=== PATIENT | female | born 2000 | race Caucasian/White ===

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

== ENCOUNTER 2020-07-01 18:12 | Inpatient (IN) | payer OTHER, SELFPAY ==
[2020-07-01] VITALS (15 sets, daily range): BP systolic 108–133; BP diastolic 59–82; PULSE 83–99; RESP 18; TEMP 36.6–36.7
--- NOTE | 2020-07-01 18:12 | LDADM ---
This patient, Candy Molina, was admitted to Labor/Delivery/Recovery 104 on 07/01/20 at 18:12. Plans for labor, pain management and were discussed with patient. Patient/family oriented to hospital policies and general routines including ID bracelet, bed and alarms, visiting hours, pain management, procedures, bathroom and other care routines, personal items, smoking policy, room service/diet and guest tray routines, infant security routines, and visiting hours. Patient/Family are encouraged to report perceived risks to care and to ask questions if they do not understand what they are told or what they should do. See OBIX for further documentation.
[2020-07-01 18:56] LABS: Basophils Percent Auto 0.2 % (0.2-1.2); Eosinophils Absolute Auto 0.1 K/mm3 (0-0.3); Eosinophils Percent Auto 0.7 % (0-4.4); Hematocrit 33.1 % (37.0-47.0); Hemoglobin 11.2 g/dL (12.0-15.0); Immature Granulocyte Absolute 0.13 K/mm3 (0.00-0.031); Immature Granulocyte Percent A 0.8 % (0-0.5); Lymphocytes Absolute Auto 2.71 K/mm3 (0.9-3.2); Mean Corpuscular HGB Conc 33.8 g/dl (32-36); Mean Corpuscular Hemoglobin 29.6 pg (26-34); Mean Corpuscular Volume 87.3 fl (80-100); Mean Platelet Volume 11.4 fl (7.4-10.4); Monocytes Percent Auto 6.1 % (2.6-8.5); Neutrophils Percent Auto 75.2 % (45.5-73.1); Platelet Count Result 292 k/mm3 (150-375); Red Blood Count 3.79 M/mm3 (4.2-5.4); Red Cell Distribution Width 13.2 % (11.5-14.5); White Blood Count 15.9 K/mm3 (4.5-10.0)
[2020-07-01] MEDS: DINOPROSTONE 10 MG VAG INSERT VAGINAL (19:18)
[2020-07-02] VITALS (103 sets, daily range): BP systolic 87–149; BP diastolic 52–103; PULSE 61–193; RESP 16; TEMP 36.3–37.2; O2SAT 98–100
[2020-07-02] MEDS: LACTATED RINGERS 1,000 ML 125 ML IV CONT ×2 (05:28→09:56)
[2020-07-02] MEDS: OXYTOCIN 30 UNITS/NS 500 ML 30 UNITS/500 ML BAG 6 UNITS IV CONT (05:29)
[2020-07-02] MEDS: ONDANSETRON INJ 4 MG/2 ML VIAL IV PUSH (06:57)
[2020-07-02] MEDS: FAMOTIDINE 20 MG/2 ML VIAL IV PUSH (12:41)
[2020-07-02] MEDS: OXYTOCIN 30 UNITS/NS 500 ML 30 UNITS/500 ML BAG 125 UNITS IV CONT (19:03)
--- NOTE | 2020-07-02 19:09 | PM.OBPRVD ---
OB - Delivery Note Procedure Route of delivery: Laceration description: Superficial Delivery repair: chromic Specimen: No Estimated blood loss (mL): 300 Anesthesia type: Epidural Disposition: floor Narrative: Patient prepped draped in usual manner for this procedure. Maternal expulsive efforts readily delivered vertex with nuchal cord noted and delivered through. Cord was clamped and cut placenta delivered spontaneously. Cervix vagina and vulva were inspected small laceration was approximated using [id number] 0 chromic suture. Uterus well contracted there is no significant bleeding. At this point procedure was considered terminated. [place] [facility] Weeks of gestation at delivery: 39 Infant gender: Female Weight (pounds): 6 Weight (ounces): 13 score one minute: 8 score five minutes: 9
[2020-07-02] MEDS: IBUPROFEN 600 MG TABLET PO (19:59)
--- NOTE | 2020-07-02 21:39 | OBPPTRN ---
07/02/2020 at 2112 Patient transferred to post room #285 via wheelchair. Support person present. Oriented to unit, room, information board, rooming in, admission packet and security measures. Patient verbalizes understanding.
[2020-07-03 04:44] LABS: Hematocrit 32.2 % (37.0-47.0); Hemoglobin 10.8 g/dL (12.0-15.0)
[2020-07-03 07:30] VITALS: BP 119/80; PULSE 78; RESP 18; TEMP 37.6
[2020-07-03] MEDS: TETANUS,DIPHTHERIA,AC PERTUSSIS ADULT (0.5 ML) BOOSTRIX IM (12:22)
[2020-07-03 19:20] VITALS: BP 125/78; PULSE 88; RESP 16; TEMP 36.7
--- NOTE | 2020-07-03 21:06 | PC.NURSE ---
202907/03/2020 Patient viewed the discharge video Mother & Baby Care, The First Two Weeks . Patient was given the opportunity and encouraged to ask questions. Patient verbalized understanding of information shared and has been given the mother/baby guide for home reference.
--- NOTE | 2020-07-04 06:38 | PC.NURSE ---
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 I explained to mother that she needs to continue taking the Valtrex when necessary and contact her doctor if she notices an outbreak not getting better or needs an additional script. I also explained to her the need to be diligent in observing good hand washing and hygiene before handling baby as the virus can be spread to baby. Symptoms of the virus may manifest itself to baby as seizures, poor feedings, lethargy, etc. If mother sees ANY of these symptoms, or if she is wondering if baby is having any of these symptoms, she should call baby's health provider at once. Mother states understanding.
[2020-07-04 07:19] LABS: Rapid Plasma Reagin Non-Reactive (NonReactive)
--- NOTE | 2020-07-04 07:27 | PM.OBDSVD ---
DS: Admitting Diagnosis Admitting Diagnosis Admitting Diagnosis: Induction of Labor OB - DS: Summary OB Procedures : None OB Procedures Intrapartum: Spontaneous Vag Delivery OB Procedures: : None Time Spent with Patient Time attestation: Total time spent providing and/or coordinating discharge services: DS: Data Data Completed and Pending Labs on day of discharge: Labs from last 24 hours 07/01/20 18:45 RPR Non-reactive Discharge Plan Discharge Discharging Clinician: Chris Chavez Patient Disposition: Home, Self-Care Activity: as tolerated Diet: as tolerated Patient Instructions: Antibiotic Form Stand Alone Forms: General Discharge Information Follow-up/Referrals: Chris Chavez MD [Physician] - 3 Weeks Discharge Medications: New hydrocodone-acetaminophen 5-325 mg Tablet 1 tablet PO Q6H PRN (Reason: Moderate Pain (4-6)) Qty: 10 RF: 0 ibuprofen 600 mg Tablet 600 mg PO Q8H PRN (Reason: Cramping) Qty: 30 RF: 0 Continued famotidine [Pepcid] 20 mg Tablet 20 mg PO BID RF: 0 metoclopramide HCl [Reglan] 10 mg Tablet 10 mg PO Q6H PRN (Reason: Morning Sickness) RF: 0 PNV [id number] fumarate-FA [] 28 mg iron- 800 mcg Tablet 1 tablet PO DAILY RF: 0 Date of admission: 07/01/20 18:12 Primary Care Provider: Roopa Cespedes Admitting Provider: Chris Chavez Attending physician on admission: Chris Chavez
[2020-07-04 08:00] VITALS: BP 139/88; PULSE 91; RESP 16; TEMP 36.3; O2SAT 98
[2020-07-04] MEDS: IBUPROFEN 600 MG TABLET PO (09:29)
[2020-07-04] MEDS: MEASLES,MUMPS,RUBELLA VACCINE 0.5 ML VIAL SUB-Q (09:30)
[2020-07-06 10:54] VITALS: BP 128/83; PULSE 97; RESP 20; TEMP 36.9; O2SAT 99
== END 2020-07-04 11:32 | disposition home or self-care (01) | DRG 806 ==
LOC: ANHLDR 18:20 → ANHOB2 07-02 21:21
PROVIDERS: Admitting Provider Obstetrics & Gynecology; PCP Pediatrics; Visit Provider Obstetrics & Gynecology
DX: O69.81X0 Labor and delivery complicated by cord around neck, without compression, not applicable or unspecified (principal); O71.4 Obstetric high vaginal laceration alone; Z37.0 Single live birth; O98.52 Other viral diseases complicating childbirth; Z3A.39 39 weeks gestation of pregnancy; O36.8330 Maternal care for abnormalities of the fetal heart rate or rhythm, third trimester, not applicable or unspecified; Z23 Encounter for immunization; B00.9 Herpesviral infection, unspecified; O99.344 Other mental disorders complicating childbirth; F41.9 Anxiety disorder, unspecified
CPT/HCPCS: 36415; 85014; 85018; 85025; 86592; 86850; 86900; 86901; 90471; 90686; 90710; 90715; A9270; G0008; J2405; J2590; J2795; J3010; J7120

== ENCOUNTER 2021-03-22 14:59 | Emergency (ER) | payer OTHER, BC, MEDICAID, SELFPAY ==
--- NOTE | ~2021-03-22 | XR_ITS ---
EXAMINATION: XR chest 1V portable DATE: 03/22/2021 16:49 INDICATION: Cough and shortness of breath. Chest pressure. TECHNIQUE: A single frontal view of the chest was obtained. COMPARISON: Chest single view 11/01/2015 FINDINGS: The chest demonstrates clear lungs without pneumonia, pleural effusion, or pneumothorax. Th e heart size is normal. IMPRESSION: 1. No acute cardiopulmonary disease. Reviewed, dictated and finalized at location A.
[2021-03-22 15:04] VITALS: BP 156/71; PULSE 100; RESP 18; TEMP 37.3; O2SAT 98
--- NOTE | 2021-03-22 16:16 | ECG_ITS ---
Measurements Intervals Daniel Rate: 95 P: 58 CA: 142 QRS: 70 QRSD: 98 T: 50 QT: 335 QTc: 421 Interpretive Statements SINUS RHYTHM INCOMPLETE RIGHT BUNDLE BRANCH BLOCK BASELINE ARTIFACT- I, III, AVL, V1-V2, V6 BORDERLINE ECG Electronically Signed On 03-22-2021 17:06:59 CDT by Osmin Miller D.O.
[2021-03-22] MEDS: ALBUTEROL SULFATE (*SP) AEROSOL 1 PUFF 2 PUFF INHALATION (16:31)
--- NOTE | 2021-03-22 16:39 | ED.URI ---
HPI - URI/Sore Throat General Chief Complaint: Anxiety Stated Complaint: shortness of breath Time Seen by Provider: 03/22/21 15:59 Source: patient and RN notes reviewed Mode of arrival: ambulatory Limitations: no limitations History of Present Illness HPI Narrative: This is a 20 year old female who presents for evaluation of shortness of breath, cough and sore throat. She reports she has been having nasal congestion, sore throat, fever, productive cough with yellow phlegm and body aches. She states last night she woke up feeling like she could not breath. She also complaints of stabbing back pain when she coughs or breathes. She states she had a fever of 101 F today and she took DayQuil today for her symptoms. She is not vaccinated for covid, and she states her daughter has similar symptoms. Related Data Allergies Allergy/AdvReac Type Severity Reaction Status Date / Time No Known Allergies Allergy Verified 03/22/21 15:12 Review of Systems Review of Systems: All systems reviewed & are unremarkable except as noted in HPI and below Constitutional: Constitutional: Reports chills and Reports fever(s) ENT: Reports nasal congestion and Reports sore throat Cardiovascular: Cardiovascular: Denies chest pain Respiratory: Respiratory: Reports cough and Reports dyspnea Gastrointestinal: Gastrointestinal: Denies abdominal pain, Denies diarrhea, Denies nausea and Denies vomiting Musculoskeletal: Musculoskeletal: Reports back pain PMFSH Past Medical History Medical History Patient denies medical problems Surgical History Surgical History History of tonsillectomy Family History Family History (Updated 06/07/20 @ 13:50 by Gabino Michele RN) Other Unknown family medical history Social History Social History Smoking status: Never smoker Substance use: never Gender identity (if verbalized by the patient): Female Spiritual care concerns: No Exam Const: General: no acute distress and alert Orientation/consciousness: patient oriented x3 HENMT: Ears: TM's normal bilaterally Mouth: Yes moist mucous membranes Throat: posterior oropharynx normal Eyes: Pupils: Equal, round and reactive pupils present EOM: EOMs intact bilaterally Neck: Neck: normal visual inspection and no lymphadenopathy Chest: Chest palpation & inspection: normal inspection of the chest Resp: Effort & Inspection: normal respiratory effort, not labored, no retractions and no use of accessory muscles Auscultation: clear to auscultation bilaterally (right upper expiratory wheezing otherwise clear to auscultation) Cardio: Rate: regular rate Rhythm: regular rhythm Heart sounds: no murmurs GI: GI Palp: Yes Soft to palpation, No Tenderness to palpation present (GI) and No Guarding due to palpation present (GI) Auscultation: normal bowel sounds Skin: General skin exam: normal color Rashes: no rashes Neuro: General: patient oriented x3, moves all extremities and CN's II-XI intact bilaterally Extrem: General: normal to inspection and no pedal edema Psych: Mental Status: mental status grossly normal Affect: normal affect Course Reevaluation(s) Reevaluation #1: I Discussed with patient lab and imaging results. She may have an occult pneumonia given the leukocytosis so she will be started on antibiotics. She was also instructed on albuterol inhaler MDI use. She is in no acute distress and she is not requiring oxygen so she will be discharged with return precautions. Date: 03/22/21 Time: 17:32 Vital Signs Vital signs: Vital Signs Temperature 99.1 F 03/22/21 15:04 Pulse Rate 100 03/22/21 15:04 Respiratory Rate 18 03/22/21 15:04 Blood Pressure 156/71 H 03/22/21 15:04 Pulse Oximetry 98 03/22/21 15:04 Temperature 99.1 F 03/22/21 15:04 Pulse Rate 99 03/22/21 18:01 Respiratory Rate 20
[2021-03-22 16:40] LABS: Basophils Absolute Auto 0.1 K/mm3 (0.0-0.1); Basophils Percent Auto 0.3 % (0.2-1.2); Eosinophils Percent Auto 0.2 % (0-4.4); Hematocrit 43.1 % (37.0-47.0); Immature Granulocyte Absolute 0.09 K/mm3 (0.00-0.031); Immature Granulocyte Percent A 0.5 % (0-0.5); Lymphocytes Absolute Auto 1.01 K/mm3 (0.9-3.2); Lymphocytes Percent Auto 5.7 % (18.3-44.2); Mean Corpuscular HGB Conc 32.5 g/dl (32-36); Mean Corpuscular Hemoglobin 28.7 pg (26-34); Mean Corpuscular Volume 88.3 fl (80-100); Mean Platelet Volume 12.3 fl (7.4-10.4); Monocytes Percent Auto 5.7 % (2.6-8.5); Neutrophils Absolute Auto 15.7 K/mm3 (1.3-6.7); Neutrophils Percent Auto 87.6 % (45.5-73.1); Platelet Count Result 210 k/mm3 (150-375); Red Blood Count 4.88 M/mm3 (4.2-5.4); Red Cell Distribution Width 13.9 % (11.5-14.5); White Blood Count 17.9 K/mm3 (4.5-10.0)
[2021-03-22 16:50] LABS: Prothrombin Time 13.6 Seconds (11.1-14.7)
[2021-03-22 16:51] LABS: Alanine Aminotransferase 20 U/L (4-35); Albumin Level 4.6 g/dL (3.5-5.1); Alkaline Phosphatase 82 U/L (38-126); Anion Gap 11 mmol/L (8-16); Aspartate Amino Transferase 27 U/L (14-36); Bilirubin,Total 0.6 mg/dL (0.2-1.3); Blood Urea Nitrogen 6 mg/dL (7-17); Calcium 9.7 mg/dL (8.4-10.2); Carbon Dioxide 23 mmol/L (22-30); Chloride 107 mmol/L (98-107); Estimated CRCL calculation 155 ml/min; Estimated Glomerular Filt Rate > 60; Glucose 84 mg/dL (65-105); Potassium 3.5 mmol/L (3.4-5.0); Sodium 141 mmol/L (137-145)
[2021-03-22 16:53] LABS: D Dimer 0.28 ug/mL (<0.48)
[2021-03-22 17:13] LABS: Monoscreen Negative (Negative); Negative Monotest Control Negative (Negative); Positive Monotest Control Positive (Positive)
[2021-03-22 18:01] VITALS: BP 140/69; PULSE 99; RESP 20; O2SAT 97
[2021-03-23 18:42] LABS: SARS-CoV-2 RNA PCR Negative
== END 2021-03-22 18:02 | disposition home or self-care (01) ==
PROVIDERS: Emergency Provider General Practice; PCP Pediatrics
DX: J06.9 Acute upper respiratory infection, unspecified (principal); Z20.822 Contact with and (suspected) exposure to COVID-19
CPT/HCPCS: 36415; 71045; 80053; 81025; 85025; 85380; 85610; 85730; 86308; 87081; 87804; 87880; 93005; 99283; A9270; C9803; U0003; U0005

== ENCOUNTER → 2023-04-10 10:38 | Outpatient (CLI) | payer BC, MEDICAID, SELFPAY ==
--- NOTE | ~2023-04-10 | US_ITS ---
US abdomen complete EXAMINATION: US Abdomen Complete INDICATION: Disorder of the adrenal gland. PROCEDURE: Realtime High Resolution abdomen ultrasound. COMPARISON: No prior studies for comparison FINDINGS: Gallbladder within normal limits. No gallstones, pericholecystic fluid, gallbladder wall t hickening or biliary dilatation. Common bile duct measures mm. Liver echotexture within normal limits without focal mass. Pancreas within normal limits. Pancreati c tail is obscured by bowel gas. Spleen is unremarkeable. Renal echotexture is within normal limits bilaterally without hydronephrosis, contour deforming mass or renal stone. Right kidney measures 12.9 cm. Left kidney measures 12.1 cm. Visualized aspects of the aorta and IVC are within normal limits. Portal vein is patent. No sonograph ic Roper's sign indicated by the technologist. IMPRESSION: 1: Normal abdominal ultrasound. Reviewed, dictated and finalized at location []
== END ==
PROVIDERS: PCP Obstetrics & Gynecology; Visit Provider Obstetrics & Gynecology
DX: E27.9 Disorder of adrenal gland, unspecified (principal)
CPT/HCPCS: 76700

== ENCOUNTER 2023-10-27 21:27 | Emergency (ER) | payer BC, MEDICAID, SELFPAY ==
--- NOTE | ~2023-10-27 | XR_ITS ---
Clinical Indication: Cough PA and lateral views of the chest: Comparison: 03/22/2021 Findings: The lungs are clear, without evidence of focal consolidation or pleural effusion. Cardiome diastinal silhouette is within normal limits. Bones and soft tissues are unremarkable. Impression: Normal chest. Reviewed, dictated and finalized at location . [facility] Impression: Normal chest.
[2023-10-27 21:34] VITALS: BP 160/90; PULSE 104; RESP 16; TEMP 37.2; O2SAT 98
[2023-10-27 22:14] LABS: Strep Group A RT-PCR NOT DETECTED (Negative)
[2023-10-27 22:15] VITALS: O2SAT 97
[2023-10-27 22:25] LABS: Influenza A QL RT-PCR Negative (Negative); Influenza B QL RT-PCR Negative (Negative); RSV RNA, RT-PCR Positive (Negative); SARS-CoV-2 RNA PCR Negative (Negative)
--- NOTE | 2023-10-27 22:57 | ED.URI ---
HPI - URI/Sore Throat General Chief Complaint: Upper Respiratory Infection Stated Complaint: fever, cough, chills Time Seen by Provider: 10/27/23 22:10 Source: patient Mode of arrival: ambulatory Limitations: no limitations History of Present Illness HPI Narrative: Patient is a 22-year-old female who presents the ED with report of upper respiratory symptoms. Patient reports having symptoms since 10/21, including cough, congestion, rhinorrhea, body aches, fevers, sore throat, ha ear pain and congestion. She states her kids and her mother have had similar symptoms. Patient has been using Tylenol, Mucinex, [id number] cough and cold medicines without significant improvement. Denies significant shortness of breath, chest pain. Denies nausea, vomiting. Related Data Allergies Allergy/AdvReac Type Severity Reaction Status Date / Time No Known Allergies Allergy Verified 03/20/23 15:06 Review of Systems Review of Systems: CONSTITUTIONAL: See HPI. ENT: See HPI. CARDIOVASCULAR: Denies chest pain. RESPIRATORY: Seizure. GASTROINTESTINAL: Denies abdominal pain, nausea, vomiting. MUSCULOSKELETAL: Report myalgia. All systems reviewed & are unremarkable except as noted in HPI and below PMFSH Past Medical History Medical History Adrenal abnormality Anxiety Depression Encounter for IUD removal HSV-1 infection Patient denies medical problems Surgical History Surgical History History of gynecological procedure (09/20/20) mirena iud insertion History of gynecological procedure (03/20/23) mirena iud removal History of tonsillectomy History of tonsillectomy Family History Family History Grandparent Acute myocardial infarction maternal grandfather Heart disease maternal grandfather Other Unknown family medical history Social History Social History Smoking status: Never smoker Alcohol intake: never Substance use: never Substance use type: does not use Lack of Transportation: No Lack of Food: Never True Current Housing: I Have Housing Concerned About Future Housing: No Difficulty Paying Gas/Electric Bills: No Difficulty Paying for Meds: No Currently Unemployed: No Education: High School Diploma/GED Difficulty w/ Childcare or Family Care: No Living arrangements: other Additional living arrangements comments: single Occupation/Education: occupation 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 HEAD: Normocephalic, atraumatic. ENT: TMs erythematous and bulging bilaterally. No drainage. No significant ENT swelling. Nasal quality to voice. MMs moist. No stridor. RESPIRATORY: Airway patent, respirations nonlabored. Clear to auscultation bilaterally, no rales, rhonchi, wheezing. CARDIOVASCULAR: Regular rate and rhythm. MUSCULOSKELETAL: Moves all extremities. No gross deformities. SKIN: Warm, dry, normal color. NEURO: A&O X3. Speech clear. Cranial nerves II-XII grossly intact. No ataxic movements. PSYCHIATRIC: Appropriate mood and affect. Normal interaction. Course Vital Signs Vital signs: Vital Signs Temperature 99 F 10/27/23 21:34 Pulse Rate 104 H 10/27/23 21:34 Respiratory Rate 16 10/27/23 21:34 Blood Pressure 160/90 H 10/27/23 21:34 Pulse Oximetry 98 10/27/23 21:34 Oxygen Delivery Room Air 10/27/23 21:34 Temperature 99 F 10/27/23 21:34 Pulse Rate 104 H 10/27/23 21:34 Respiratory Rate 16 10/27/23
--- NOTE | 2023-10-27 23:09 | PC.NURSE ---
Assumed care of pt from MAKI Resendiz at this time.
== END 2023-10-28 00:22 | disposition home or self-care (01) ==
PROVIDERS: Emergency Medicine; Emergency Provider Physician Assistant
DX: J22 Unspecified acute lower respiratory infection (principal); B97.4 Respiratory syncytial virus as the cause of diseases classified elsewhere; H66.93 Otitis media, unspecified, bilateral; Z20.822 Contact with and (suspected) exposure to COVID-19; F41.9 Anxiety disorder, unspecified; F32.A Depression, unspecified
CPT/HCPCS: 71046; 87637; 87651; 99283

== ENCOUNTER 2023-11-07 17:25 | Emergency (ER) | payer BC, MEDICAID, SELFPAY ==
[2023-11-07 17:34] VITALS: BP 125/80; PULSE 85; RESP 16; TEMP 36.8; O2SAT 98
--- NOTE | 2023-11-07 17:43 | ED.EAR ---
HPI - Ear Problem General Chief complaint: Ear Stated complaint: L EAR CLOGGED Time Seen by Provider: 11/07/23 17:33 Source: patient, RN notes reviewed and old records reviewed Mode of arrival: ambulatory Limitations: no limitations History of Present Illness HPI Narrative: Patient presents today complaining of left ear clogging for approximately 10 days. Patient was seen in the ER on 10/27/2023. She was diagnosed with a bilateral otitis media and RSV during this visit and prescribed a 7 day course of Augmentin. States remainder of her symptoms have resolved, and she no longer has any ear pain, but does have this lingering muffling in her left ear. She has tried no medication for these current symptoms and has stopped taking cold medicine as the remainder of her symptoms are gone. Denies drainage from the ear. Related Data Home Medications Medication Instructions Recorded Confirmed No Home Medications 11/07/23 11/07/23 Allergies Allergy/AdvReac Type Severity Reaction Status Date / Time No Known Allergies Allergy Verified 11/07/23 17:31 Review of Systems Review of Systems: CONSTITUTIONAL: Denies body aches, fever, chills, or sweats. EYES: Denies visual changes, redness, or discharge. ENT: Denies rhinorrhea, congestion, sore throat, or otalgia.+ left ear clogging CARDIOVASCULAR: Denies chest pain, palpitations, or edema. RESPIRATORY: Denies cough or dyspnea. GASTROINTESTINAL: Denies abdominal pain, nausea, vomiting, or diarrhea. GENITOURINARY: Denies dysuria or hematuria. SKIN: Denies rash, itching, or wounds. MUSCULOSKELETAL: Denies back pain, joint pain, or myalgia. NEUROLOGIC: Denies headache, numbness, tingling, or weakness. PSYCH: Denies depression or anxiety. [facility] Past Medical History Medical History Adrenal abnormality Anxiety Depression Encounter for IUD removal HSV-1 infection Patient denies medical problems Surgical History Surgical History History of gynecological procedure (09/20/20) mirena iud insertion History of gynecological procedure (03/20/23) mirena iud removal History of tonsillectomy History of tonsillectomy Family History Family History Grandparent Acute myocardial infarction maternal grandfather Heart disease maternal grandfather Other Unknown family medical history Social History Social History Smoking status: Never smoker Alcohol intake: never Substance use: never Substance use type: does not use Lack of Transportation: No Lack of Food: Never True Current Housing: I Have Housing Concerned About Future Housing: No Difficulty Paying Gas/Electric Bills: No Difficulty Paying for Meds: No Currently Unemployed: No Education: High School Diploma/GED Difficulty w/ Childcare or Family Care: No Living arrangements: other Additional living arrangements comments: single Occupation/Education: occupation 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 Please see nursing chart for further information. There is no relevant family history pertinent to the presenting complaint Exam Narrative: GENERAL: Well-appearing, well-nourished, and in no acute distress. HEAD: Normocephalic, atraumatic. EYES: EOMI. No redness or drainage. Conjunctivae normal. ENT: Mucous membranes pink and moist. Nares clear. No rhinorrhea. Right TM normal. Left TM retracted. It is normal
== END 2023-11-07 17:50 | disposition home or self-care (01) ==
PROVIDERS: Emergency Provider Nurse Practitioner
DX: H73.892 Other specified disorders of tympanic membrane, left ear (principal)
CPT/HCPCS: 99211; G0463

== ENCOUNTER 2024-04-01 18:08 | Emergency (ER) | payer BC, SELFPAY ==
--- NOTE | ~2024-04-01 | XR_ITS ---
XR foot LT min 3V Ordering provider: DANNA Chin History: . pain x3 days. No known injury . Comparison: None. FINDINGS: BONES: No acute fracture or dislocation. JOINT SPACES: Normal. No tarsal coalition. SOFT TISSUES: Normal. IMPRESSION: No acute osseous abnormality left foot. Reviewed, dictated and finalized at location A.
[2024-04-01 18:19] VITALS: BP 152/75; PULSE 103; RESP 16; TEMP 37.4; O2SAT 100
--- NOTE | 2024-04-01 18:40 | ED.LOWEXIN ---
HPI - Extremity Injury (Lower) General Chief Complaint: Extremity Injury, Lower Stated Complaint: Left Foot Pain Time Seen by Provider: 04/01/24 18:30 Source: patient and RN notes reviewed Mode of arrival: ambulatory Limitations: no limitations History of Present Illness HPI Narrative: Patient presents today complaining of pain to her left foot. Denies any specific injury, but states she did trip on a hose at a fair last weekend, and this may be the source of her pain. She did note some pain after she had been walking up and down her stairs while doing laundry. Reports some tingling in toes 2 through 5. Currently rates her pain /10 and has been taking ibuprofen without relief. Related Data Home Medications Medication Instructions Recorded Confirmed No Home Medications 11/07/23 04/01/24 Allergies Allergy/AdvReac Type Severity Reaction Status Date / Time No Known Allergies Allergy Verified 04/01/24 18:22 Review of Systems Review of Systems: CONSTITUTIONAL: Denies body aches, fever, chills, or sweats. EYES: Denies visual changes, redness, or discharge. ENT: Denies rhinorrhea, congestion, sore throat, or otalgia. CARDIOVASCULAR: Denies chest pain, palpitations, or edema. RESPIRATORY: Denies cough or dyspnea. GASTROINTESTINAL: Denies abdominal pain, nausea, vomiting, or diarrhea. GENITOURINARY: Denies dysuria or hematuria. SKIN: Denies rash, itching, or wounds. MUSCULOSKELETAL: + left foot pain NEUROLOGIC: Denies headache, numbness, or weakness. + toe tingling PSYCH: Denies depression or anxiety. ON LICENSE OF [facility] Past Medical History Medical History Adrenal abnormality Anxiety Depression Encounter for IUD removal HSV-1 infection Patient denies medical problems Surgical History Surgical History History of gynecological procedure (09/20/20) mirena iud insertion History of gynecological procedure (03/20/23) mirena iud removal History of tonsillectomy History of tonsillectomy Family History Family History Grandparent Acute myocardial infarction maternal grandfather Heart disease maternal grandfather Other Unknown family medical history Social History Social History Smoking status: Never smoker Alcohol intake: never Substance use: never Substance use type: does not use Lack of Transportation: No Lack of Food: Never True Current Housing: I Have Housing Concerned About Future Housing: No Difficulty Paying Gas/Electric Bills: No Difficulty Paying for Meds: No Currently Unemployed: No Education: High School Diploma/GED Difficulty w/ Childcare or Family Care: No Living arrangements: other Additional living arrangements comments: single Occupation/Education: occupation Additional occupation/education comments: barney at [employer] Gender identity (if verbalized by the patient): Female Sexual Orientation (if Verbalized by the Patient): Straight or Heterosexual Spiritual care concerns: No Comments At time of signature, I have reviewed and agree with nursing past medical, surgical, social and family history unless otherwise noted. Please see nursing chart for further information. There is no relevant family history pertinent to the presenting complaint Exam Narrative: GENERAL: Well-appearing, well-nourished, and in no acute distress. HEAD: Normocephalic, atraumatic. EYES: EOMI. No redness or drainage. Conjunctivae normal. ENT: Mucous membranes pink and moist. NECK: Normal AROM. CHEST: No respiratory distress. EXTREMITIES: Left foot: Tenderness to the dorsum of the foot, at the base of toes 2 through 4 with mild edema to the affected area as well. Patient also reports tenderness to the plantar aspect o
== END 2024-04-01 19:15 | disposition home or self-care (01) ==
PROVIDERS: Emergency Provider Nurse Practitioner
DX: S93.602A Unspecified sprain of left foot, initial encounter (principal); X58.XXXA Exposure to other specified factors, initial encounter
CPT/HCPCS: 73630; 99213; G0463

== ENCOUNTER 2024-12-02 10:14 | Outpatient (CLI) | payer OTHER, BC, SELFPAY ==
--- OUTSIDE RECORDS SUMMARY | 2024-12-02 11:11 | XMS_ITS | Referral Summary ---
Author Organization [facility] [employer] Address [address] [place] [address] Care Team Providers Care Hammer Heater Name Role Phone Roopa Cespedes MD Primary Care Provider [phone] [facility],non-owned Affiliates and Associated Physician Practices is amultiple site organization consisting of ambulatory clinics and hospital sitesin [place], [place], [place] and [place]. This disclosure is being madepursuant to the Care Everywhere program and may not contain all information available regarding this patient. Last updated 18.[facility] Allergies No known active allergies Medications * Be aware that medications may not be up to date on this document. Alwaysverify current medications with the patient. Medication Sig Dispensed Refills Start Date End Date Status pantoprazole (PROTONIX) 40 MG packet Take 40 mg by mouth once daily Active cyproheptadine (PERIACTIN) 4 MG tablet Take 1 Tab by mouth at bedtime 30 Tab 2 01/10/2017 Active Active Problems Problem Noted Date Diagnosed Date Closed nondisplaced fracture of base of fifth metacarpal bone of left hand 11/28/2017 Superficial gastritis 01/10/2017 Epigastric abdominal pain 12/11/2016 Weight loss 12/11/2016 Dysphagia 12/11/2016 Dyspepsia 12/11/2016 Social History Tobacco Use Types Packs/Day Years Used Date Smoking Tobacco: Never Smokeless Tobacco: Never Alcohol Use Standard Drinks/Week Comments No 0 (1 standard drink = 0.6 oz pur e alcohol) Sex and Gender Information Value Date Recorded Sex Assigned at Not on file Gender Identity Not on file Sexual Orientation Not on file Last Filed Vital Signs Vital Sign Reading Time Taken Comments Blood Pressure 102/67 01/10/2017 12:44 PM CDT Pulse 88 01/10/2017 12:44 PM CDT Temperature 36.3 C (97.4 F) 01/10/2017 12:05 PM CDT Respiratory Rate 20 01/10/2017 12:44 PM CDT Oxygen Saturation 100% 01/10/2017 12:44 PM CDT Inhaled Oxygen Concentration - - Weight 80.1 kg (176 lb 9.4 oz) 11/28/2017 9:31 A M COMMUNITY HEALTH EDUCATION COORDINATOR Height 178.1 cm (5' 10.12 ) 11/28/2017 9:[address] Body Mass Index 25.25 11/28/2017 9:31 AM COMMUNITY HEALTH EDUCATION COORDINATOR Functional Status Functional Status Response Date of Assess ment Is person deaf or have serious hearing difficult y? No 01/10/2017 Is person blind or have serious difficulty seein g? No 01/10/2017 Does person have serious dif ficulty walking/climbing stairs? No 01/10/2017 Does person have difficulty dressing/bathing? No 01/10/2017 Does person have difficulty doing errands alone? No 01/10/2017 Cognitive Status Response Date of Assessm ent Does person have difficulty concentrating/remembering/making decisions? No 01/10/2017 Plan of Treatment Not on file Care Teams Hammer Heater Relationship Specialty Start Date End Date Roopa Cespedes MD [address] [facility] [address] [place] [address] PCP - General Pediatrics 09/28/14
--- OUTSIDE RECORDS SUMMARY | 2024-12-02 11:11 | XMS_ITS | Patient Health Summary ---
Author Organization [facility] Address [address] [place] [address] Care Team Providers Care Marble Ceiling Installer Name Role Phone Roopa Cespedes MD Primary Care Provider [phone] Note from [facility],non-owned Affiliates and Associated Physician Practices is amultiple site organization consisting of ambulatory clinics and hospital sitesin [place], [place], [place] and [place]. This disclosure is being madepursuant to the Care Everywhere program and may not contain all information available regarding this patient. Last updated 18.[facility] Allergies No known active allergies Medications * Be aware that medications may not be up to date on this document. Alwaysverify current medications with the patient. * pantoprazole (PROTONIX) 40 MG packet Take 40 mg by mouth once daily * cyproheptadine (PERIACTIN) 4 MG tablet(Started 01/10/2017) Take 1 Tab by mouth at bedtime 2 refills remaining Active Problems Problem Noted Date Diagnosed Date [...] lb 9.4 oz) 11/28/2017 9:31 A M ATTRACTION WORKER Height 178.1 cm (5' 10.12 ) 11/28/2017 9:[address] Body Mass Index 25.25 11/28/2017 9:31 AM ATTRACTION WORKER Procedures * IMAGING/RADIOLOGY/XRAY RESULTS ORDER(Performed 02/06/2017) * LAB RESULTS ORDER(Performed 02/06/2017) * PATHOLOGY TISSUE EXAM (STL)(Performed 01/10/2017) Performed for Pain, abdominal, generalized * TISSUE TRANSGLUTAMINASE AB IGA(Performed 01/10/2017) Performed for Epigastric abdominal pain * LIPASE BLOOD(Performed 01/10/2017) Performed for Epigastric abdominal pain * IGA BLOOD(Performed 01/10/2017) Performed for Epigastric abdominal pain * COMPREHENSIVE METABOLIC PANEL(Performed 01/10/2017) Performed for Epigastric abdominal pain * CBC W AUTO DIFFERENTIAL(Performed 01/10/2017) Performed for Epigastric abdominal pain * HELICOBACTER PYLORI UREASE (STL)(Performed 01/10/2017) Performed for Epigastric abdominal pain, Weight loss * ESOPHAGOGASTRODUODENOSCOPY (EGD) BIOPSY(Performed 01/10/2017) Performed for Pain, abdominal, generalized * HCG URINE QUALITATIVE - POCT (IP) BEAKER(Performed 01/10/2017) * EGD(Performed 01/10/2017) Performed for Epigastric abdominal pain, Weight loss * IMAGING/RADIOLOGY/XRAY RESULTS ORDER(Performed 10/06/2014) Results * IMAGING/RADIOLOGY/XRAY RESULTS ORDER (02/06/2017 6:00 PM CDT) Only the most recent of2 resultswithin the time period is included. Anatomical Region Laterality Modality Other Narrative 02/06/2017 6:00 PM CDT Ordered by an unspecified provider. Scanned Document IMAGING * LAB RESULTS ORDER (02/06/2017 6:00 PM CDT) Narrative 02/06/2017 6:00 PM CDT Ordered by an unspecified provider. Scanned Document LAB - THERAPEUTIC DR UG MONITORING ORDERABLES * GROSS + MICRO EXAM (STL) (01/10/2017 11:35 AM CDT) Case Report Surgical Pathology Report Case: [id number] Authorizing Provider: Mychal Brian MD Collected: 01/10/2017 11:35 AM Ordering Location: ENDOSCOPY SERVICES Received: 01/10/2017 01:27 PM Pathologist: Hermelinda Green MD Specimens: A) - Duodenal Biopsy B) - Stomach Biopsy C) - Esophageal Biopsy 01/14/2017 5:33 PM [facility] Final Diagnosis A. DUODENUM, BIOPSY: - NO PATHOLOGIC DIAGNOSIS. B. STOMACH, BIOPSY: - MILD CHRONIC GASTRITIS. - NEGATIVE STAIN FOR HELICOBACTER PYLORI. C. ESOPHAGUS, BIOPSY: - NO PATHOLOGIC DIAGNOSIS. 01/14/2017 5:33 PM [facility] Clinical History The patient is a 16-year-old girl with abdominal pain who underwent upper endoscopy. The endoscopic finding was revolving gastritis. 01/14/2017 5:33 PM [facility] Gross Description The specimens are received fixed in formalin in thee containers for gross and microscopic examination. All containers are labeled with the patient s name, Candy Molina. Specimen A, d uodenal biopsy, consists of five soft, yellow-de la vega tissue fragments, 1 mm to 4 mm in greatest dimension. The specimen is submitted in toto as A1. Specimen B, s tomach biopsy, consists of three soft, yellow-de la vega tissue fragments, 3 mm to 5 mm in greatest dimension. The specimen is submitted in toto as B1. Specimen C, e sophageal biopsy, consists of two 3 mm soft, keller-pink tissue fragments submitted in toto as C1. (CT/na) 01/14/2017 5:33 PM [facility] Microscopic Description A) 3 H&E; B) 3 H&E; 1 H. pylori; C) 3 H&E. Sections of the duodenal biopsy show fragments of unremarkable duodenal mucosa with preserved villous architecture. 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 No significant acute inflammation is identified. Immunohistochemical staining for Helicobacter pylori is negative. Sections of the esophageal biopsy show strips of unremarkable stratified squamous mucosa. (SES/alj) 01/14/2017 5:33 PM CDT [facility] Disclaimer The performance characteristics of all immunohistochemical and indirect immunofluorescence stains (if any) cited in this report were determined by the Histopathology Laboratory of [facility]. Some of these tests were developed by our own laboratory and have not been cleared or approved by the US Food and Drug Administration (FDA). The FDA does not require this test to go through premarket FDA review. These tests are used for clinical purposes. They should not be regarded as investigational or for research. This laboratory is certified under the Clinical Laboratory Improvement Amendments (CLIA) as qualified to perform high complexity clinical laboratory testing. This case has been personally reviewed and interpreted by the attending (teaching) pathologist. 01/14/2017 5:33 PM CDT [facility] Embedded Images 01/14/2017 5:33 PM CDT [facility] Pathology/Cytology DUODENAL BIOPSY SPECIMEN / Unknown 01/10/2017 11:35 AM CDT 01/10/2017 1:27 PM CDT Miscellaneous samples (specimen) BIOPSY OF STOMACH / Unknown 01/10/2017 11:35 AM CDT 01/10/2017 1:27 PM CDT Miscellaneous samples (specimen) ESOPHAGEAL BIOPSY SPECIMEN / Unknown 01/10/2017 11:36 AM CDT 01/10/2017 1:27 PM CDT Mychal Brian MD LAB - PATHOLOGY/CYT OLOGY ORDERABLES Performing Organization Address City/State/[facility] Co de Phone Number [facility] [address] [place] [address] * HELICOBACTER PYLORI UREASE (STL) (01/10/2017 11:25 AM CDT) Helicobacter pylori Urease Initial Negative Negative 01/11/2017 1:08 PM CDT [facility] Helicobacter pylori Urease Final Negative Negative 01/11/2017 1:08 PM CDT [facility] Comment:This is an appended report. These results have been appended to a previously preliminary verified report. Microbiology GASTRIC BIOPSY SPECIMEN / Unknown 01/10/2017 11:25 AM CDT 01/10/2017 12:05 PM CDT Zora M Kyara RIPRAP WORKER-TELEMARKETING SUPERVISOR LAB - [facility] ROBIOLOGY ORDERABLES [facility] [address]nie Benítez [facility] [place] [address] * TISSUE TRANSGLUTAMINASE AB IGA (01/10/2017 11:25 AM CDT) TTG Antibody IgA <2 0 - 3 U/mL 01/11/2017 2:14 PM CDT [facility] Comment: Please Note: Specimen is hemolyzed. Negative 0 - 3 Weak Positive 4 - 10 Positive >10 Tissue Transglutaminase (tTG) has been identified as the endomysial antigen. Studies have demonstr- ated that endomysial IgA antibodies have over 99% specificity for gluten sensitive enteropathy. Blood BLOOD SPECIMEN / Unknown 01/10/2017 11:25 AM CDT 01/10/2017 12:11 PM CDT Narrative [facility] - 01/11/2017 2:14 PM CDT Performed at: - [facility] [id number] Parachute Rigger: Eamon Merritt PhD, Phone: [phone] Mychal Brian MD LAB - SEROLOGY ADAM FIGUEROA [facility]) [address] [place] [address] * (ABNORMAL) CBC W AUTO DIFFERENTIAL (01/10/2017 11:25 AM CDT) WBC 8.5 4.5 - 14.5 x10E9/L 01/10/2017 12:32 PM CDT [facility] WBC Corrected x10E9/L 01/10/2017 12:32 PM CDT [facility] RBC 3.62(L) 4.10 - 5.10 x10E12/L 01/10/2017 12:32 PM CDT [facility] Hemoglobin 11.0(L) 12.0 - 16.0 gm/dL 01/10/2017 12:32 PM CDT [facility] Hematocrit 32.2(L) 36.0 - 47.0 % 01/10/2017 12:32 PM [facility] MCV 89.0 78.0 - 98.0 fl 01/10/2017 12:32 PM [facility] MCH 30.4 25.0 - 35.0 pg 01/10/2017 12:32 PM [facility] MCHC 34.2 31.0 - 37.0 gm/dL 01/10/2017 12:32 PM [facility] Platelet Count 201 100 - 400 x10E9/L 01/10/2017 12:32 PM [facility] RDW-CV 12.6 11.5 - 14.0 % 01/10/2017 12:32 PM [facility] MPV 13.2(H) 6.0 - 9.5 fl 01/10/2017 12:32 PM [facility] Neutrophils % 62.2 24.0 - 66.0 % 01/10/2017 12:32 PM [facility] Lymphocytes % 27.0 22.0 - 61.0 % 01/10/2017 12:32 PM [facility] Monocytes % 8.7 3.0 - 15.0 % 01/10/2017 12:32 PM [facility] Eosinophils % 1.1 0.0 - 10.0 % 01/10/2017 12:32 PM [facility] Basophils % 0.5 % 01/10/2017 12:32 PM [facility] Immature Granulocytes 0.5 % 01/10/2017 12:32 PM [facility] Neutrophil Absolute 5.29 x10E9/L 01/10/2017 12:32 PM [facility] Lymphocytes Absolute 2.29 x10E9/L 01/10/2017 12:32 PM [facility] Monocytes Absolute 0.74 x10E9/L 01/10/2017 12:32 PM [facility] Eosinophils Absolute 0.09 x10E9/L 01/10/2017 12:32 PM [facility] Basophils Absolute 0.04 x10E9/L 01/10/2017 12:32 PM [facility] Immature Granulocytes Absolute 0.04 x10E9/L 01/10/2017 12:32 PM [facility] nRBC Auto 0 /100 WBC 01/10/2017 12:32 PM T [facility] Blood BLOOD SPECIMEN / Unknown 01/10/2017 11:25 AM CDT 01/10/2017 12:11 PM CDT Mychal Brian MD LAB - HEMATOLOGY OR DERABLES Performing Organization Address City/State/[facility] Co de Phone Number [facility] [place] [address] * (ABNORMAL) COMPREHENSIVE METABOLIC PANEL (01/10/2017 11:25 AM CDT) [facility] Glucose 75 70 - 105 mg/dL 01/10/2017 1:02 PM [facility] Sodium 138 136 - 145 mmol/L 01/10/2017 1:02 PM [facility] Potassium 5.3(H) 3.5 - 5.1 mmol/L 01/10/2017 1:02 PM [facility] Chloride 106 98 - 107 mmol/L 01/10/2017 1:02 PM [facility] CO2 26 20 - 28 mmol/L 01/10/2017 1:02 PM [facility] Calcium 8.32(L) 9.08 - 10.48 mg/dL 01/10/2017 1:02 PM [facility] Anion Gap 6 5 - 20 mmol/L 01/10/2017 1:02 PM [facility] BUN 10.7 5.3 - 18.7 mg/dL 01/10/2017 1:02 PM [facility] Creatinine 0.51(L) 0.61 - 1.07 mg/dL 01/10/2017 1:02 PM [facility] Alkaline Phosphatase 44(L) 100 - 390 U/L 01/10/2017 1:02 PM [facility] ALT 17 8 - 65 U/L 01/10/2017 1:02 PM [facility] AST 31 3 - 35 U/L 01/10/2017 1:02 PM [facility] Protein Total 6.9 6.3 - 8.2 gm/dL 01/10/2017 1:02 PM [facility] Albumin 3.5 3.3 - 4.9 gm/dL 01/10/2017 1:02 PM CDT [facility] Bilirubin Total 0.3 0.3 - 1.2 mg/dL 01/10/2017 1:02 PM T [facility] eGFR by MDRD mL/min/1. 73m2 01/10/2017 1:02 PM T [facility] Comment: eGFR calculations are not performed for children under 18 years old. eGFR by MDRD mL/min/1. 73m2 01/10/2017 1:02 PM T [facility] Comment: eGFR calculations are not performed for children under 18 years old. Blood BLOOD SPECIMEN / Unknown 01/10/2017 11:25 AM CDT 01/10/2017 12:11 PM CDT Mychal Brian MD LAB - CHEMISTRY ORD ERABLES Performing Organization Address City/[facility]/ZIP Co de Phone Number [facility] [address] [place] [address] * LIPASE BLOOD (01/10/2017 11:25 AM CDT) Lipase 13 10 - 220 U/L 01/10/2017 1:02 PM CDT [facility] Blood BLOOD SPECIMEN / Unknown 01/10/2017 11:25 AM CDT 01/10/2017 12:11 PM CDT Mychal Brian MD LAB - CHEMISTRY ORD ERABLES Performing Organization Address [facility] Co de Phone Number [facility] [address] [place] [address] * (ABNORMAL) IGA BLOOD (01/10/2017 11:25 AM CDT) IgA 59(L) 65 - 421 mg/dL 01/10/2017 1:02 PM CDT [facility] Blood BLOOD SPECIMEN / Unknown 01/10/2017 11:25 AM CDT 01/10/2017 12:11 PM CDT Mychal Brian MD LAB - CHEMISTRY ORD ERABLES [facility] [address] [place] [address] * HCG URINE QUALITATIVE - POCT (IP) BEAKER (01/10/2017 10:25 AM CDT) HCG Qual Urine Negative Negative [facility] PO[facility] TEST[facility] QC Verified Yes Yes [facility] PO CT TESTING Urine URINE / Unknown 01/10/2017 1 0:25 AM CDT Mychal Brian MD LAB - POINT OF CARE ORDERABLES [facility] [address] [phone] * EGD (01/10/2017 6:57 AM CDT) Report Endoscopy POC _ Patient Name: Candy Molina Date of : 2000 Admit Type: Outpatient Age: 16 Gender: Female Attending MD: Mychal Brian MD Order #: [id number] _ Procedure: Upper GI endoscopy Indications: Epigastric abdominal pain, Dysphagia, Weight loss Providers: Mychal Brian MD Referring MD: Roopa Cespedes MD Medicines: General Anesthesia Complications: No immediate complications. _ Procedure: After obtaining informed consent, the endoscope was passed under direct vision. Throughout the procedure, the patient's blood pressure, pulse, and oxygen saturations were monitored continuously. The Endoscope was introduced through the mouth, and advanced to the third part of duodenum. The upper GI endoscopy was accomplished without difficulty. The patient tolerated the procedure well. Findings: The examined duodenum was normal. Biopsies were taken with a cold forceps for histology. 4 samples Localized mild inflammation characterized by congestion (edema), erythema and granularity was found on the lesser curvature of the stomach and in the gastric antrum. Biopsies were taken with a cold forceps for histology. The examined esophagus was normal. Biopsies were taken with a cold forceps for histology. Lower third Impression: - Normal examined duodenum. Biopsied. - Non-erosive gastritis. Biopsied. - Normal esophagus. Biopsied. Recommendation: - Discharge patient to home (with parent). - Await pathology results. - Telephone GI clinic for pathology results in 1 week. 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 Continue acid suppression and add periactin 4mg PO qhs which will reduce the functional sensitivity. f/u path results to assure no other diagnoses and f/u with the family. Procedure Code(s): --- Professional --- 71857, Esophagogastroduo denoscopy, flexible, transoral; with biopsy, single or multiple --- Technical --- 76079, Esophagogastroduo denoscopy, flexible, transoral; with biopsy, single or multiple Diagnosis Code(s): --- Professional --- K29.60, Other gastritis without bleeding R10.13, Epigastric pain R13.10, Dysphagia, unspecified R63.4, Abnormal weight loss --- Technical --- K29.60, Other gastritis without bleeding R10.13, Epigastric pain R13.10, Dysphagia, unspecified R63.4, Abnormal weight loss CPT copyright 2015 [employer]. All rights reserved. The codes documented in this report are preliminary and upon wood products manufacturer review may be revised to meet current compliance requirements. Dr. Mychal Brian ____ Mychal Brian MD 01/10/2017 11:51:34 AM This report has been signed electronically. Number of Addenda: 0 Note Initiated On: 01/10/2017 6:57 AM Procedure Date: 01/10/2017 6:57:53 AM This report has been signed electronically. [facility] 01/10/2017 6:57 AM CDT Zora Sparrow RIPRAP WORKER-TELEMARKETING SUPERVISOR GI PROCED URE ORDERABLES Performing Organization Address City/State/[facility] Co de Phone Number [facility] [address] [place] [address] Care Teams Marble Ceiling Installer Relationship Specialty Start Date End Date Roopa Cespedes MD [address] [place] [address] PCP - General Pediatrics 09/28/14
--- OUTSIDE RECORDS SUMMARY | 2024-12-02 11:11 | XMS_ITS | Clinical Summary ---
Author Organization [facility] Address [address] [place] [address] Care Team Providers Care Canned Food Reconditioning Inspector Name Role Phone Roopa Cespedes MD Primary Care Provider [phone] Source Comments [facility],non-owned Affiliates and Associated Physician Practices is amultiple site organization consisting of ambulatory clinics and hospital sitesin [place], [place], [place] and [place]. This disclosure is being madepursuant to the Care Everywhere program and may not contain all information available regarding this patient. Last updated 18.[facility] Allergies No known active allergies Medications * [...] Weight loss 12/11/2016 Dysphagia 12/11/2016 Dyspepsia 12/11/2016 Family History Medical History Relation Name Comments Stomach ulcers Father Bleeding ulce rs GERD - Gastroesophageal Reflux Disease Maternal Grandm other Cholelithiasis Mother IBS Mother Celiac Disease Neg Hx Crohn's Disease Neg Hx Ulcerative Colitis Neg Hx Relation Name Status Comments Father Maternal Grandmother Mother Social History Tobacco Use Types Packs/Day Years [...] lb 9.4 oz) 11/28/2017 9:31 A M COOLING TOWER OPERATOR Height 178.1 cm (5' 10.12 ) 11/28/2017 9:[address] Body Mass Index 25.25 11/28/2017 9:31 AM COOLING TOWER OPERATOR Plan of Treatment Health Maintenance Due Date Last Done Comments PAP SMEAR 2000 HIV SCREENING 2015 HPV VACCINE (1 - 3-dose series) 2015 CHLAMYDIA/GONORRHEA SCREENING 2016 MENINGOCOCCAL (Group B) VACC INE (1 of 2 - Standard) 2016 HEPATITIS C SCREENING 12/08/2018 DTAP/TDAP/TD VACCINES (1 - Tdap) 2019 HEPATITIS B VACCINE (1 of 3 - 19+ 3-dose series) 2019 COVID-19 VACCINE (1 - 2023-2 5 season) 2024 INFLUENZA VACCINE (#1) 2024 DEPRESSION SCREENING 10/21/2024 ZOSTER VACCINE (1 of 2) 2050 HIB VACCINE Aged Out No longer eligi ble based on patient's age to complete this topic MENINGOCOCCAL VACCINE Aged Out No joseph tariq eligible based on patient's age to complete this topic PNEUMOCOCCAL VACCINE Aged Out No long er eligible based on patient's age to complete this topic Care Teams Canned Food Reconditioning Inspector Relationship Specialty Start Date End Date Roopa Cespedes MD [id number] [facility] [address] [place] [address] PCP - General Pediatrics 09/28/14
[2024-12-03 06:34] LABS: DHEA-Sulfate 549 mcg/dL (14-349)
== END 2024-12-02 10:15 | disposition home or self-care (01) ==
LOC: ANHLAB 10:16
PROVIDERS: Visit Provider Obstetrics & Gynecology
DX: E27.9 Disorder of adrenal gland, unspecified (principal)
CPT/HCPCS: 36415; 82627; 83498; 84402; 84403